=== PATIENT | female | born 1990 | race Caucasian/White ===

== ENCOUNTER 2018-06-13 16:27 | Emergency (ER) | payer BC ==
[~2018-06-13] VITALS: Ht 172.7 cm; Wt 74.8 kg
[2018-06-13] MEDS ORDERED: IBUPROFEN 600 MG TABLET ONE (16:45)
[2018-06-13] MEDS ORDERED: IBUPROFEN 600 MG TABLET PO ONE (16:45)
--- NOTE | 2018-06-13 17:09 | NUR ---
Patient discharged to home in stable conditon. Written and verbal after care instructions given. Patient verbalizes understanding of instructions.pt walks in steady gait.
== END 2018-06-13 17:12 | disposition home or self-care (01) ==
LOC: ER 16:27
DX: S61.012A Laceration without foreign body of left thumb without damage to nail, initial encounter (principal); W26.8XXA Contact with other sharp object(s), not elsewhere classified, initial encounter; Y93.89 Activity, other specified; Y92.89 Other specified places as the place of occurrence of the external cause; Y99.8 Other external cause status
CPT/HCPCS: A4663